=== PATIENT | male | born 1980 | race African-American/Black ===

== ENCOUNTER 2016-04-24 10:19 | Emergency (ER) | payer OTHER ==
[2016-04-24 10:03] LABS: INFLUENZA A POS (NEG); INFLUENZA B NEG (NEG)
== END 2016-04-24 11:04 | disposition home or self-care (01) ==
LOC: SED 10:19
PROVIDERS: Emergency Medicine
DX: J09.X2 Influenza due to identified novel influenza A virus with other respiratory manifestations (principal); Z87.891 Personal history of nicotine dependence
CPT/HCPCS: 87651; 87804; 99283